=== PATIENT | female | born 1965 | race Two or more races ===

== ENCOUNTER → 2024-08-06 | Outpatient (CLI) | payer BC, SELFPAY ==
[2024-08-06 08:29] LABS: Basophils # (Auto) 0.1 Thou/mm3 (0.0-0.2); Basophils % (Auto) 1 % (0-2.5); Eosinophils # (Auto) 0.2 Thou/mm3 (0.0-0.5); Eosinophils % (Auto) 2 % (0-10); Hematocrit 41.5 % (36.0-46.0); Hemoglobin 13.4 g/dL (12.0-16.0); Immature Granulocytes % (Auto) 0 % (0-0); Immature Granulocytes Auto 0.01 Thou/mm3 (0.00-0.00); Lymphocytes # (Auto) 2.6 Thou/mm3 (1.0-4.8); Lymphocytes % (Auto) 35 % (10-50); Mean Corpuscular HGB Conc 32.3 g/dl (31.0-37.0); Mean Corpuscular Hemoglobin 29.3 pg (25.0-35.0); Mean Corpuscular Volume 91 fL (80-100); Monocytes # (Auto) 0.4 Thou/mm3 (0.0-0.8); Monocytes % (Auto) 6 % (0-12); Neutrophils # (Auto) 4.2 Thou/mm3 (1.8-7.7); Neutrophils % (Auto) 57 % (37-80); Nucleated Red Blood Cell % 0 /100 WBC (0); Platelet Count 251 Thou/mm3 (140-440); RDW Standard Deviation 46.2 fL (36.4-46.3); Red Blood Count 4.58 Miln/mm3 (4.00-5.20); White Blood Count 7.4 Thou/mm3 (3.6-11.0)
[2024-08-06 08:38] LABS: Glucose Estimated Average 140 mg/dL (80-131); Hemoglobin A1C 6.5 % Hgb (4.8-6.0)
[2024-08-06 08:58] LABS: Vitamin B12 417 pg/mL (211-911); Vitamin D 25 Hydroxy Total 20.2 ng/mL (7.3-40.2)
[2024-08-06 09:04] LABS: Alanine Aminotransferase 21 U/L (10-49); Albumin, Serum 4.1 gm/dL (3.5-5.0); Albumin/Globulin Ratio 1.6 (1.2-2.2); Alkaline Phosphatase 103 U/L (46-116); Anion Gap 9 (7-16); Aspartate Amino Transferase 19 U/L (0-34); BUN/Creatinine Ratio 18 Ratio (12-20); Bilirubin,Total 0.3 mg/dL (0.3-1.2); Blood Urea Nitrogen 14 mg/dL (9-23); Calcium 9.3 mg/dL (8.3-10.6); Calcium (Corrected) 9.3 mg/dL (8.5-10.1); Carbon Dioxide 25.9 mMol/L (20.0-31.0); Cardiac Risk Estimate 3.4 RATIO (3.7-5.6); Chloride 108 mMol/L (98-107); Cholesterol 191 mg/dL (132-200); Creatinine (Component) 0.8 mg/dL (0.6-1.3); Globulin 2.6 gm/dL (2.3-3.5); Glucose 124 mg/dL (74-106); HDL Cholesterol 57 mg/dL (40-60); LDL Cholesterol,Calculated 121 mg/dL (0-130); Osmolality,Calculated 286 (275-295); Potassium 4.3 mMol/L (3.4-5.1); Sodium 143 mMol/L (136-145); Total Protein 6.7 gm/dL (5.7-8.2); Triglycerides 66 mg/dL (30-150); eGFR > 60 See Note
== END | disposition home or self-care (01) ==
LOC: COPL 07:49
PROVIDERS: PCP Family Medicine; Referring Provider Physician Assistant; Visit Provider Physician Assistant
DX: R42 Dizziness and giddiness (principal); H53.8 Other visual disturbances; R35.0 Frequency of micturition; R00.2 Palpitations; E78.5 Hyperlipidemia, unspecified; R73.01 Impaired fasting glucose; E55.9 Vitamin D deficiency, unspecified
CPT/HCPCS: 36415; 80053; 80061; 82306; 82607; 83036; 84443; 85025

== ENCOUNTER → 2024-12-03 | Outpatient (CLI) | payer BC, SELFPAY ==
[2024-12-03 09:23] LABS: Glucose Estimated Average 123 mg/dL (80-131); Hemoglobin A1C 5.9 % Hgb (4.8-6.0)
[2024-12-03 09:32] LABS: Alanine Aminotransferase 23 U/L (10-49); Albumin, Serum 4.3 gm/dL (3.5-5.0); Albumin/Globulin Ratio 1.5 (1.2-2.2); Alkaline Phosphatase 95 U/L (46-116); Anion Gap 9 (7-16); Aspartate Amino Transferase 25 U/L (0-34); BUN/Creatinine Ratio 14 Ratio (12-20); Bilirubin,Total 0.4 mg/dL (0.3-1.2); Blood Urea Nitrogen 11 mg/dL (9-23); Calcium 9.5 mg/dL (8.3-10.6); Calcium (Corrected) 9.5 mg/dL (8.5-10.1); Carbon Dioxide 27.0 mMol/L (20.0-31.0); Cardiac Risk Estimate 3.3 RATIO (3.7-5.6); Chloride 105 mMol/L (98-107); Cholesterol 184 mg/dL (132-200); Creatinine (Component) 0.8 mg/dL (0.6-1.3); Globulin 2.9 gm/dL (2.3-3.5); Glucose 115 mg/dL (74-106); HDL Cholesterol 56 mg/dL (40-60); LDL Cholesterol,Calculated 111 mg/dL (0-130); Osmolality,Calculated 281 (275-295); Potassium 4.4 mMol/L (3.4-5.1); Sodium 141 mMol/L (136-145); Total Protein 7.2 gm/dL (5.7-8.2); Triglycerides 83 mg/dL (30-150); eGFR > 60 See Note
== END | disposition home or self-care (01) ==
PROVIDERS: PCP Family Medicine; Referring Provider Physician Assistant; Visit Provider Physician Assistant
DX: E11.65 Type 2 diabetes mellitus with hyperglycemia (principal); E78.5 Hyperlipidemia, unspecified
CPT/HCPCS: 36415; 80053; 80061; 83036

== ENCOUNTER → 2025-03-05 | Outpatient (CLI) | payer BC, SELFPAY ==
[2025-03-05 09:50] LABS: Alanine Aminotransferase 31 U/L (10-49); Albumin, Serum 4.4 gm/dL (3.5-5.0); Albumin/Globulin Ratio 1.6 (1.2-2.2); Alkaline Phosphatase 104 U/L (46-116); Anion Gap 10 (7-16); Aspartate Amino Transferase 33 U/L (0-34); BUN/Creatinine Ratio 15 Ratio (12-20); Bilirubin,Total 0.4 mg/dL (0.3-1.2); Blood Urea Nitrogen 12 mg/dL (9-23); Calcium 9.5 mg/dL (8.3-10.6); Calcium (Corrected) 9.5 mg/dL (8.5-10.1); Carbon Dioxide 27.2 mMol/L (20.0-31.0); Cardiac Risk Estimate 3.0 RATIO (3.7-5.6); Chloride 105 mMol/L (98-107); Cholesterol 172 mg/dL (132-200); Creatinine (Component) 0.8 mg/dL (0.6-1.3); Globulin 2.7 gm/dL (2.3-3.5); Glucose 106 mg/dL (74-106); Glucose Estimated Average 126 mg/dL (80-131); HDL Cholesterol 58 mg/dL (40-60); Hemoglobin A1C 6.0 % Hgb (4.8-6.0); LDL Cholesterol,Calculated 101 mg/dL (0-130); Osmolality,Calculated 282 (275-295); Potassium 4.4 mMol/L (3.4-5.1); Sodium 142 mMol/L (136-145); Total Protein 7.1 gm/dL (5.7-8.2); Triglycerides 65 mg/dL (30-150); eGFR > 60 See Note
== END | disposition home or self-care (01) ==
LOC: COPL 08:11
PROVIDERS: PCP Family Medicine; Referring Provider Physician Assistant; Visit Provider Physician Assistant
DX: E78.5 Hyperlipidemia, unspecified (principal); E11.9 Type 2 diabetes mellitus without complications
CPT/HCPCS: 36415; 80053; 80061; 83036